=== PATIENT | female | born 1985 | race Caucasian/White ===

== ENCOUNTER 2017-04-02 21:09 | Emergency (ER) | payer SELFPAY ==
[~2017-04-02] VITALS: Ht 152.4 cm; Wt 38.5 kg
--- NOTE | ~2017-04-02 | US67 ---
[facility] A Service of [facility] RADIOLOGY TEXT RESULTS PATIENT: SYED TORO LOCATION: [facility]FT[facility] : 85 UNIT #: [id number] AGE: [address]: CRUZ DUMONT APRN SEX: F ORDER DR: [id number] [facility] [address] [place], [place] [address] [id number] MR#: [id number] Acc #: [id number] NAME: SYED TORO : 1985 SEX: F STUDY DATE/TIME: 04/03/2017 0:24 UNIT: CFT[facility] ROOM: STUDY DESCRIPTION: US Gallbladder Attending Physician: Cruz Dumont Aprn Ordering Physician: Cruz Dumont Aprn Primary Care Physician: Jazmine Draper M.D. MEDICAL IMAGING REPORT This report is preliminary unless electronic signature is present EXAM Right upper quadrant abdominal ultrasound. INDICATIONS Upper abdominal pain for the past 3 days. PROCEDURE Camacho-scale color Doppler imaging right upper quadrant of the abdomen. COMPARISON None. FINDINGS Visualized portions of pancreas are unremarkable. Liver measures 15.8 cm in length. No liver mass on submitted images. Unremarkable gallbladder. Right kidney measures 9.9 cm and is normal. Common duct measures 3 mm. IMPRESSION Negative right upper quadrant ultrasound. Dictated by... Phil Smallwood M.D. THIS IS AN ELECTRONICALLY VERIFIED REPORT Phil Smallwood M.D. at 04/07/2017 8:31 AM EED/mart TD: 04/03/2017 06:57 JOB #: [id number] MEDICAL IMAGING REPORT Page 1 of 1 COPY
[~2017-04-02 21:09] MED LIST: ACETAMINOPHEN PO; ALPRAZOLAM; DICYCLOMINE HCL20 MG PO; FLEXERIL10 MG PO; FLOMAX0.4 M1 PO; IBUPROFEN800 MG PO; K-DUR20 ME1 PO; KCL PO; LORTAB 7.5-5001 TAB PO; METRONIDAZOLE PO; NAPROSYN375 MG PO; NAPROXEN PO; NO MEDICATIONS; OMEPRAZOLE20 M2 PO; PHENERGAN25 M1 PO; PRILOSEC20 MG PO; VICODIN 5/1 TAB 5/50 PO; ZOFRAN ODT4 MG PO; [UNRECOGNIZED DRUG - REMARK]
[2017-04-02 23:57] LABS: BASOPHIL# 0.1 X10e3 (0-0.3); BASOPHIL% 0.8 % (0-2.5); DIFF IND NO; EOSINOPHIL# 0.1 X10e3 (0-0.7); HEMATOCRIT 36.2 % (35.0-45.0); HEMOGLOBIN 11.5 gm/dL (12.0-16.0); LYMPHOCYTE# 3.9 X10e3 (1.0-3.5); LYMPHOCYTE% 36.5 % (17.0-45.0); MEAN CELL VOLUME 81.9 FL (83-96); MEAN CORPUSCULAR HGB CONC 31.7 g/dL (30-36); MEAN PLATELET VOLUME 8.3 FL (6.5-11.5); MONOCYTE# 0.6 X10e3 (0-1.0); MONOCYTE% 5.2 % (3.0-12.0); NEUTROPHIL# 6.1 X10e3 (1.5-7.1); NEUTROPHIL% 56.5 % (40-75); PLATELET COUNT 234 X10e3 (140-420); RED BLOOD COUNT 4.42 X10e (3.90-5.30); RED CELL DISTRIBUTION WIDTH 17.2 % (11.0-15.5); WHITE BLOOD COUNT 10.8 X10e3 (4.0-10.5)
[2017-04-02 23:59] LABS: URINE APPEARANCE CLEAR; URINE BILIRUBIN NEG (NEG); URINE BLOOD NEG (NEG); URINE COLOR YELLOW; URINE GLUCOSE NEG (NEG); URINE KETONE 2+ (NEG); URINE LEUKOCYTE ESTERASE TRACE (NEG); URINE NITRATE NEG (NEG); URINE PROTEIN NEG (NEG); URINE SPECIFIC GRAVITY 1.022 (1.003-1.035); URINE UROBILINOGEN 0.2 MG/DL (NEG)
[2017-04-03 00:02] LABS: CULTURE INDICATED? YES; URINE BACTERIA AUWI 1+ (NEGATIVE); URINE SQUAMOUS EPITHELIAL CELL OCC /[HPF]
[2017-04-03 00:26] LABS: ALBUMIN SERUM 4.3 g/dL (3.5-5.0); ALKALINE PHOSPHATASE 49 U/L (32-92); ALT (SGPT) 12 U/L (10-40); AMYLASE 31 U/L (0-46); AST (SGOT) 13 U/L (10-42); BILIRUBIN,TOTAL 0.7 mg/dL (0.2-2.0); BLOOD UREA NITROGEN 11 mg/dL (9-23); CALCIUM SERUM 8.9 mg/dL (8.4-10.2); CARBON DIOXIDE 24 mmol/L (22-31); CHLORIDE 107 mmol/L (100-111); CREATININE SERUM 0.4 mg/dL (0.6-1.4); GLOM FILT RATE Estimated 137.9 mL/min (>60); GLUCOSE FASTING 77 mg/dL (70-110); LIPASE 27 U/L (22-51); PROTEIN TOTAL SERUM 7.6 g/dL (6.0-8.3); SODIUM 136 mmol/L (135-145)
[2017-04-03 00:32] LABS: BILIRUBIN, DIRECT <0.1 mg/dL (0.0-0.2); BILIRUBIN,INDIRECT 0.6 mg/dL (0.0-0.9); POTASSIUM 2.9 mmol/L (3.5-5.1)
== END 2017-04-03 01:20 | disposition home or self-care (01) ==
LOC: CFTX 21:09 → CED 21:09 → CFTX 22:58
PROVIDERS: Nurse Practitioner Family
DX: R10.11 Right upper quadrant pain (principal); E87.6 Hypokalemia; F41.9 Anxiety disorder, unspecified; F17.210 Nicotine dependence, cigarettes, uncomplicated
CPT/HCPCS: 36415; 76705; 80048; 80076; 81003; 82150; 83690; 84703; 85025; 87086; 96361; 96374; 96375; 99284; J1885; J2405

== ENCOUNTER 2017-05-11 12:24 | Emergency (ER) | payer OTHER ==
[2017-05-11] MEDS ORDERED: NO MEDICATIONS (12:50)
== END 2017-05-11 14:27 | disposition home or self-care (01) ==
LOC: SED 12:24
DX: K04.7 Periapical abscess without sinus (principal); F41.9 Anxiety disorder, unspecified; F17.210 Nicotine dependence, cigarettes, uncomplicated; N83.209 Unspecified ovarian cyst, unspecified side; Z98.51 Tubal ligation status
CPT/HCPCS: 99282